=== PATIENT | female | born 2000 | race Caucasian/White ===

== ENCOUNTER 2018-03-18 18:28 | Emergency (ER) | payer OTHER ==
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
[2018-03-18] MEDS ORDERED: DIPHTH/TETANUS/ACEL. PERTUSSIS IM ONLY ONE (18:45)
[2018-03-18] MEDS ORDERED: MORPHINE 10 MG/ML SYR IM ONE (18:45)
[2018-03-18] MEDS ORDERED: PROPARACAINE 0.5% OP 15ML BTL OD ONE (19:00)
[2018-03-18] MEDS ORDERED: MORPHINE 4 MG/ML SDV IVP ONE (19:05)
[2018-03-18] MEDS ORDERED: EMS NS 0.9%(*) 1000 ML BAG 1,000 ML IV ONE (19:50)
[2018-03-18] MEDS ORDERED: ONDANSETRON 4 MG/2 ML VIAL IVP ONE (19:55)
[2018-03-18] MEDS ORDERED: FLUORESCEIN SOD 1 MG 1 EA STRP OD ONE (20:05)
[2018-03-18] MEDS ORDERED: ERYTHROMYCIN OP OINT 5MG/GM TU OU ONE (20:05)
[2018-03-18] MEDS ORDERED: OXYC-865 PO (20:29)
[2018-03-18] MEDS ORDERED: BACI28.415 TP (20:29)
[2018-03-18 20:30] VITALS: BP 123/77
[2018-03-18] MEDS ORDERED: oxyCODONE/ACETAMIN 5/325MG TH 2 TAB/BOTTLE PO ONE (20:35)
== END 2018-03-18 21:00 | disposition home or self-care (01) ==
LOC: ER 18:37
DX: T20.06XA Burn of unspecified degree of forehead and cheek, initial encounter (principal)
CPT/HCPCS: 16020; 90471; 90715; 96372; 96374; 96375; 99283; J2270; J2405

== ENCOUNTER → 2018-03-18 | Outpatient (CLI) | payer OTHER ==
[~2018-03-18] MED LIST: BACI28.415 TP; OXYC-865 PO
== END ==
LOC: AMB 18:19
PROVIDERS: ATTEND Nurse Practitioner
DX: T20.09XA Burn of unspecified degree of multiple sites of head, face, and neck, initial encounter (principal); T79.9XXA Unspecified early complication of trauma, initial encounter; X08.8XXA Exposure to other specified smoke, fire and flames, initial encounter; W40.9XXA Explosion of unspecified explosive materials, initial encounter
CPT/HCPCS: A0425; A0427